=== PATIENT | male | born 1995 ===

== ENCOUNTER 2018-11-05 11:51 | Emergency (ER) | payer SELFPAY ==
[2018-11-06] MEDS ORDERED: Benzonatate 100 MG CAP ONE ×2 (00:08→00:12)
[2018-11-06] MEDS ORDERED: methylPREDNISolone Acetate 40 mg/ml Vial ONE (00:08)
== END 2018-11-06 00:15 | disposition home or self-care (01) ==
LOC: BURERS 11:51
DX: R05 Cough (principal); F17.210 Nicotine dependence, cigarettes, uncomplicated
CPT/HCPCS: 96372; J1030